=== PATIENT | male | born 1945 | race Caucasian/White ===

== ENCOUNTER → 2017-01-12 | Outpatient (CLI) | payer MEDICARE, OTHER ==
--- NOTE | 2017-01-12 14:54 | RADIOLOGY REPORT (SQ) ---
EXAM DESCRIPTION: CT ABD/PELVIS WITH IV ORAL COMPLETED DATE/TIME: 01/12/2017 2:09 pm REASON FOR STUDY: ABN WEIGHT LOSS/DIABETES MELLITUS TYPE 2 R63.4 ABNORMAL WEIGHT LOSS COMPARISON: CT abdomen pelvis 12/13/2009 TECHNIQUE: CT scan of the abdomen and pelvis performed using helical scanning technique with dynamic intravenous contrast injection. Patient drank oral contrast. Images reviewed with lung, soft tissue , and bone windows. Reconstructed coronal and sagittal MPR images reviewed. Delayed images for evalua tion of the urinary system also acquired. All images stored on PACS. All CT scanners at this facility use dose modulation, iterative reconstruction, and/or weight based d osing when appropriate to reduce radiation dose to as low as reasonably achievable (ALARA). [facility]: Dose Right [facility]: CareDose [facility]: Dose Right [facility]: Teradose 4D [facility]: CaseReader CONTRAST TYPE AND DOSE: contrast/concentration: Isovue 370.00 mg/ml; Total Contrast Delivered: 100.0 ml; Total Saline Delivered: 72.0 ml RENAL FUNCTION: Creatinine 1.4 RADIATION DOSE: Up-to-date CT equipment and radiation dose reduction techniques were employed. CTDIv ol: 18.9 - 19.5 mGy. DLP: 1958 mGy-cm.. LIMITATIONS: None. FINDINGS: LOWER CHEST: No significant findings. No nodules or infiltrates. LIVER: Normal size. No masses. No dilated ducts. Diffuse low attenuation from fatty infiltration SPLEEN: Normal size. No focal lesions. PANCREAS: No masses. No significant calcifications. No adjacent inflammation or peripancreatic fluid collections. Pancreatic duct not dilated. GALLBLADDER: No identified stones by CT criteria. No inflammatory changes to suggest cholecystitis. ADRENAL GLANDS: No significant masses or asymmetry. RIGHT KIDNEY AND URETER: No solid masses. Right upper pole 1.5 cm cyst, right mid-pole 3.7 cm cyst. No significant calcifications. No hydronephrosis or hydroureter. LEFT KIDNEY AND URETER: No solid masses. Left upper pole 1 cm cyst. 1 cm and 2.5 cm left lower pole cysts. No significant calcifications. No hydronephrosis or hydroureter. AORTA AND VESSELS: No aneurysm. No dissection. Renal arteries, celiac without stenosis. Less than 50 % diameter narrowing of the proximal SMA at the origin, best shown on coronal reconstruction images 5 9-67, and midline sagittal reconstruction image 45 RETROPERITONEUM: No retroperitoneal adenopathy, hemorrhage or masses. BOWEL AND PERITONEAL CAVITY: No masses or inflammatory changes. No free fluid or peritoneal masses. Patient drank oral contrast. No bowel obstruction. APPENDIX: Normal. PELVIS: No mass. No free fluid. Normal bladder. ABDOMINAL WALL: Fat containing bilateral inguinal hernias BONES: Disc space loss of height with mild diffuse posterior disc bulge and central stenosis at L4-5 OTHER: No other significant finding. IMPRESSION: NO SIGNIFICANT OR ACUTE FINDING IN THE ABDOMEN OR PELVIS ON CT SCAN WITH IV CONTRAST. TECHNICAL DOCUMENTATION: JOB ID: [id number] Quality ID # [id number]: Final reports with documentation of one or more dose reduction techniques (e.g., Au tomated exposure control, adjustment of the mA and/or kV according to patient size, use of iterative reconstruction technique) 2010 [employer]- All Rights Reserved
== END ==
LOC: RAD 13:24
PROVIDERS: ATTEND Family Medicine
DX: R63.4 Abnormal weight loss (principal); E11.9 Type 2 diabetes mellitus without complications; R13.10 Dysphagia, unspecified
CPT/HCPCS: 74177; 82565

== ENCOUNTER 2019-04-30 19:11 | Inpatient (IN) | payer MEDICARE, OTHER ==
[2019-04-30] MEDS ORDERED: ONDANSETRON 4 MG TAB.RAPDIS PO ONE (20:32)
--- NOTE | 2019-04-30 20:35 | ER Document Report ---
ED Medical Screen (RME) - General Chief Complaint: Vomiting/Diarrhea Stated Complaint: VOMITING/DIARRHEA Time Seen by Provider: 04/30/19 20:29 Primary Care Provider: JERE FIERRO DO [Primary Care Provider] - Follow up as needed Notes: Patient is a 74-year-old male who presents to the emergency department with a chief complaint of abdominal pain and distention. Patient also states that he feels nauseous and has some epigastric pain also. He states that he may have had on and off fevers. Denies any dysuria. Exam: Firm mid abdomen. Mildly tender. I have greeted and performed a rapid initial assessment of this patient. A comprehensive ED assessment and evaluation of the patient, analysis of test results and completion of medical decision making process will be conducted by an additional ED providers. TRAVEL OUTSIDE OF THE [place] IN LAST 30 DAYS: No - Related Data Home Medications: pantoprazole 40 mg qday. amlodipine 5 mg qday. losartan 100/25 qday. januvia 100 mg. levothyroxine 125 mcg. atorvastatin 40 mg qhs. novolog flexpen 10 units tid. basaglar pen 20 units qday Physical Exam - Vital signs Vitals: Temp Pulse Resp BP Pulse Ox 98.1 F 67 20 122/66 95 04/30/19 19:19 04/30/19 19:19 04/30/19 19:19 04/30/19 19:19 04/30/19 19:19 Course - Vital Signs Vital signs: Temp Pulse Resp BP Pulse Ox 98.1 F 67 20 122/66 95 04/30/19 19:19 04/30/19 19:19 04/30/19 19:19 04/30/19 19:19 04/30/19 19:19 Doctor's Discharge - Discharge Referrals: JERE FIERRO DO [Primary Care Provider] - Follow up as needed
[2019-04-30] MEDS ORDERED: NORMAL SALINE 1000 ML 1,000 ML IV ONE ×2 (20:37→23:41)
[2019-04-30] MEDS ORDERED: MORPHINE SULFATE 10 MG/ML INJ IV ONE (21:41)
--- NOTE | 2019-04-30 21:54 | ER Document Report ---
ED General - General Chief Complaint: Vomiting/Diarrhea Stated Complaint: VOMITING/DIARRHEA Time Seen by Provider: 04/30/19 20:29 TRAVEL OUTSIDE OF THE [place] IN LAST 30 DAYS: No - HPI Notes: This is a 74-year-old gentleman who presents today with a complaint of nausea, vomiting, diarrhea and abdominal pain for the past 4 to 5 days. Patient describes cramping epigastric discomfort. He denies any dark or bloody stools. He denies any recent antibiotic use or foreign travel. He also states that he is feels some palpitations and chest pain intermittently over the past few days. He denies any fever or chills. He describes her symptoms as moderate. There are no obvious aggravating or relieving factors. - Related Data Allergies/Adverse Reactions: amoxicillin [From Augmentin] Allergy (Verified 04/30/19 21:43) Beta-Blockers (Beta-Adrenergic Bloc Allergy (Verified 04/30/19 21:43) clavulanic acid [From Augmentin] Allergy (Verified 04/30/19 21:43) niacin Allergy (Verified 04/30/19 21:43) Home Medications: pantoprazole 40 mg qday. amlodipine 5 mg qday. losartan 100/25 qday. januvia 100 mg. levothyroxine 125 mcg. atorvastatin 40 mg qhs. novolog flexpen 10 units tid. basaglar pen 20 units qday Past Medical History - Social History Smoking Status: Never Smoker Frequency of alcohol use: None Drug Abuse: None Family History: Hypertension Patient has suicidal ideation: No Patient has homicidal ideation: No Review of Systems - Review of Systems Constitutional: denies: Fever Cardiovascular: Chest pain, Palpitations Gastrointestinal: Abdomen distended, Abdominal pain, Diarrhea, Nausea, Vomiting -: Yes All other systems reviewed and negative Physical Exam - Vital signs Vitals: Temp Pulse Resp BP Pulse Ox 98.1 F 67 20 122/66 95 04/30/19 19:19 04/30/19 19:19 04/30/19 19:19 04/30/19 19:19 04/30/19 19:19 - General General appearance: Appears well, Alert - HEENT Head: Normocephalic, Atraumatic Eyes: Normal Pupils: PERRL - Respiratory Respiratory status: No respiratory distress Chest status: Nontender Breath sounds: Normal Chest palpation: Normal - Cardiovascular Rhythm: Irregularly irregular, Tachycardia Heart sounds: S1 appreciated, S2 appreciated - Abdominal Inspection: Normal Distension: Distended Bowel sounds: Normal Tenderness: Tender - Slight epigastric and left lower quadrant tenderness. No guarding or rebound. No peritoneal signs. - Back Back: Normal, Nontender - Extremities General upper extremity: Nontender General lower extremity: Nontender. No: Edema - Neurological Neuro grossly intact: Yes Cognition: Normal Orientation: AAOx4 Tha Coma Scale Eye Opening: Spontaneous Tha Coma Scale Verbal: Oriented Tha Coma Scale Motor: Obeys Commands Tha Coma Scale Total: 15 Speech: Normal Motor strength normal: LUE, RUE, LLE, RLE Sensory: Normal - Psychological Associated symptoms: Normal affect, Normal mood Course - Re-evaluation Re-evalutation: 04/30/19 21:54 Differential diagnosis includes gastroenteritis versus pancreatitis versus gastritis versus diverticulitis versus colitis. To new onset A. fib with RVR. Will check basic labs including electrolytes and thyroid function. We will also need to rule out ACS given intermittent chest pain. Will get CT scan. EKG shows A. fib with a ventricular rate of 136 bpm. Normal axis. Nonspecific ST depressions. No acute injury pattern. 04/30/19 23:46 Patient reevaluated. Patient is doing better. Heart rate improved significantly. Still in A. fib. Heart rate is between 90s to 105. CT scan is concerning for possible ischemic bowel. Patient's care discussed with Dr. Lanza., surgicalist 05/01/19 00:17 Patient has been seen by Dr. Lanza He recommends admission by hospitalist service. He will follow with consult. He recommends anticoagulation with heparin.. Call placed to Dr. Yepez. 05/01/19 00:34 Patient reevaluated. His stool is trace heme positive. I discussed this finding with Dr. Lanza. He agrees that we should not anticoagulate this patient at this time given heme positive stools. Patient's care discussed with Dr. Yepez. Will admit to telemetry. - Vital Signs Vital signs: Temp Pulse Resp BP Pulse Ox 98.8 F 67 13 101/65 94 05/01/19 02:58 04/30/19 19:19 05/01/19 03:01 05/01/19 03:01 05/01/19 03:01 - Laboratory Result Diagrams: 04/30/19 21:34 04/30/19 21:34 Laboratory results interpreted by me: 04/30/19 04/30/19 04/30/19 21:04 21:34 21:34 WBC 12.6 H RBC 5.60 H Hgb 17.1 H Lymph % (Auto) 7.3 L Absolute Neuts (auto) 10.7 H Seg Neutrophils % 84.5 H Potassium 3.5 L BUN 36 H Creatinine 1.63 H Est GFR ( Amer) 50 L Est GFR (MDRD) Non-Af 41 L Glucose 157 H POC Glucose 153 H TSH Urine Protein 04/30/19 04/30/19 21:34 21:39 WBC RBC Hgb Lymph % (Auto) Absolute Neuts (auto) Seg Neutrophils % Potassium BUN Creatinine Est GFR ( Amer) Est GFR (MDRD) Non-Af Glucose POC Glucose TSH 8.18 H Urine Protein 30 H Discharge - Discharge Clinical Impression: Atrial fibrillation with rapid ventricular response, Gastroenteritis Abdominal pain Qualifiers: Abdominal location: generalized Qualified Code(s): R10.84 - Generalized abdominal pain Condition: Fair Disposition: ADMITTED INPATIENT Admitting Provider: Marleni (Hospitalist) Unit Admitted: Telemetry
[2019-04-30 22:06] LABS: ABSOLUTE BASOPHILS # (AUTO) 0.1 10^3/uL (0.0-0.2); ABSOLUTE LYMPHOCYTES (AUTO) 0.9 10^3/uL (0.5-4.7); ABSOLUTE MONOCYTES (AUTO) 0.9 10^3/uL (0.1-1.4); ABSOLUTE NEUT (AUTO) 10.7 10^3/uL (1.7-8.2); BASOPHILS % (AUTO) 0.5 % (0-2); EOSINOPHILS % (AUTO) 0.2 % (0-6); HEMATOCRIT 50.3 % (37.9-51.0); HEMOGLOBIN 17.1 g/dL (13.5-17.0); LYMPHOCYTES % (AUTO) 7.3 % (13-45); MEAN CORPUSCULAR HEMOGLOBIN 30.6 pg (27.0-33.4); MEAN CORPUSCULAR HGB CONC 34.1 g/dL (32.0-36.0); MEAN CORPUSCULAR VOLUME 90 fl (80-97); MONOCYTES % (AUTO) 7.5 % (3-13); PLATELET COUNT 312 10^3/uL (150-450); RED CELL DISTRIBUTION WIDTH 13.7 % (11.5-14.0); SEGMENTED NEUTROPHILS % (AUTO) 84.5 % (42-78); TOTAL CELLS COUNTED % (AUTO) 100 %; WHITE BLOOD COUNT 12.6 10^3/uL (4.0-10.5)
[2019-04-30 22:15] LABS: APPEARANCE,URINE SLIGHTLY-CLOUDY; BILIRUBIN,URINE NEGATIVE (NEGATIVE); COLOR,URINE AMBER; GLUCOSE, URINE NEGATIVE (NEGATIVE); KETONES,URINE NEGATIVE (NEGATIVE); LEUKOCYTE ESTERASE,URINE NEGATIVE (NEGATIVE); NITRITE,URINE NEGATIVE (NEGATIVE); PROTEIN,URINE 30 mg/dL (NEGATIVE); URINE SPECIFIC GRAVITY 1.027; UROBILINOGEN,URINE NEGATIVE mg/dL (<2.0)
[2019-04-30 22:28] LABS: ALBUMIN 4.6 g/dL (3.5-5.0); ALKALINE PHOSPHATASE 45 U/L (38-126); ANION GAP 15 (5-19); ASPARTATE AMINO TRANSFERASE 42 U/L (17-59); BILIRUBIN,DIRECT 0.2 mg/dL (0.0-0.4); BILIRUBIN,TOTAL 0.8 mg/dL (0.2-1.3); BLOOD UREA NITROGEN 36 mg/dL (7-20); CALCIUM 9.7 mg/dL (8.4-10.2); CARBON DIOXIDE 23 mmol/L (22-30); CHLORIDE 102 mmol/L (98-107); GLUCOSE 157 mg/dL (75-110); POTASSIUM 3.5 mmol/L (3.6-5.0); TOTAL PROTEIN 7.6 g/dL (6.3-8.2)
--- NOTE | 2019-04-30 22:29 | RADIOLOGY REPORT (SQ) ---
EXAM DESCRIPTION: XR CHEST 1 VIEW COMPLETED DATE/TME: 04/30/2019 21:41 CLINICAL HISTORY: 74 years, Male, chest pain COMPARISON: None. NUMBER OF VIEWS: 1 TECHNIQUE: Portable chest LIMITATIONS: None. FINDINGS: The heart size is normal. Post surgical change of the cervical spine. Osteopenia. Lungs clear. No pneumothorax IMPRESSION: No acute cardiopulmonary process copyright 2010 [employer]- All Rights Reserved
[2019-04-30 22:42] LABS: FREE T4 (FREE THYROXINE) 1.04 ng/dL (0.78-2.19)
[2019-04-30 22:56] LABS: THYROID STIMULATING HORMONE 8.18 uIU/mL (0.47-4.68)
--- NOTE | 2019-04-30 23:28 | RADIOLOGY REPORT (SQ) ---
EXAM DESCRIPTION: CLINICAL HISTORY: 74 years Male abdominal pain/distension COMPARISON: CT 01/12/2017. TECHNIQUE: Axial images with IV contrast. Contrast dose not available sagittal coronal reconstruction. This exam was performed according to our departmental dose-optimization program, which includes automated exposure control, adjustment of the mA and/or kV according to patient size and/or use of iterative reconstruction technique.. FINDINGS: Minimal chronic changes in the lung bases with apparent air trapping and minimal linear densities. Fatty liver. Spleen, pancreas , biliary system, adrenal glands Para-aortic regions are unremarkable. Mildly atherosclerotic aorta without dilatation or narrowing. Moderate narrowing at the origin of the superior mesenteric artery. Mild narrowing at the origin of the left renal artery. Kidneys without acute findings. Small cysts. Mild to moderate gastric distention. Duodenum and very proximal jejunum not dilated. [id number] dilatation of the mid jejunum and ileum except for several areas of normal small bowel caliber.. Mildly dilated right and transverse colon. Contracted unremarkable descending colon. Increased peritoneal fat. Several levels of from [id number] lumbar spinal stenosis. CT of the pelvis demonstrates increased perirectal fat. Mildly enlarged prostate. Urinary bladder grossly unremarkable. Rectosigmoid contracted without obvious thickening. Sigmoid diverticulosis without acute diverticulitis. No adenopathy. Bilateral inguinal hernias with herniation of fat more obvious in the left. No herniation of bowel loops. IMPRESSION: 1. Mild dilatation with increased fluid of majority of small bowel and as well as right and transverse colon. No obvious obstructing lesion. Findings could be related to gastroenteritis or ileus. There is narrowing at the origin of the superior mesenteric artery and questionably mild stenosis of the celiac artery. The possibility of ischemic bowel should be considered. Bowel wall is is relatively thin which does not exclude ischemic changes. There are no obvious peritoneal abnormalities. 2. Sigmoid diverticulosis without acute diverticulitis. 3. Fatty liver. Increased peritoneal fat causing abdominal distention. 4. Bilateral inguinal hernias with herniation of fat not bowel..
[2019-05-01] MEDS ORDERED: DILTIAZEM HCL INJ 25 MG/5 ML VIAL IV ONE (00:09)
[2019-05-01] MEDS ORDERED: ASPIRIN 81 MG TABLET, CHEWABLE PO ONE (00:15)
--- NOTE | 2019-05-01 00:43 | PDOC CONSULTATION ---
Consultation Consult Date: 05/01/19 Provider Consulted: ALLEY MANNING Consult reason:: Abdominal pain and distention with nausea vomiting diarrhea History of Present Illness Admission Date/PCP: CHELSEA MARR History of Present Illness: FLORIAN MCKEON is a 74 year old male, obese, with a 3-day history of progressive increasing abdominal pain diffuse, nausea with vomiting, no emesis, multiple bouts of liquid stools without hematochezia. During this time the patient developed chest pain which continued at the same time of the abdominal pain. The patient presented to the emergency room with the above abdominal and chest symptoms. Following further evaluation, the patient presents with new onset atrial fibrillation initially associated with RVR, now subsided. A CT scan of the abdomen pelvis has been obtained and this reveals occasional distended loops of small bowel, distended right colon, thin-walled small bowel, modest narrowing of the takeoff of the SMA and of the celiac artery. However, the radiologist cannot firmly confirm the possibility of small bowel ischemia. No small bowel wall thickening or pneumatosis identified and no free air or free fluid is seen. His stools have been tested and found to be heme positive. I have been consulted to rule out the possibility of small bowel ischemia and to provide recommendations for diagnosis and treatment. Social History Smoking Status: Never Smoker Family History Parental Family History Reviewed: No Children Family History Reviewed: No Sibling(s) Family History Reviewed.: No Medication/Allergy Allergies/Adverse Reactions: amoxicillin [From Augmentin] Allergy (Verified 04/30/19 21:43) Beta-Blockers (Beta-Adrenergic Bloc Allergy (Verified 04/30/19 21:43) clavulanic acid [From Augmentin] Allergy (Verified 04/30/19 21:43) niacin Allergy (Verified 04/30/19 21:43) Physical Exam Vital Signs: Temp Pulse Resp BP Pulse Ox 98.1 F 67 24 H 120/83 89 L 04/30/19 19:19 04/30/19 19:19 05/01/19 00:01 05/01/19 00:01 05/01/19 00:01 Intake & Output 04/29/19 04/30/19 05/01/19 06:59 06:59 06:59 Weight 99 kg General appearance: PRESENT: no acute distress, obese Head exam: PRESENT: atraumatic Eye exam: PRESENT: EOMI Mouth exam: PRESENT: moist, neck supple Teeth exam: PRESENT: poor dentation Neck exam: PRESENT: other - His range of motion Respiratory exam: PRESENT: clear to auscultation patti Cardiovascular exam: PRESENT: irregular rhythm GI/Abdominal exam: PRESENT: distended, firm, normal bowel sounds, tenderness - Diffuse Rectal exam: PRESENT: heme (+) stool - As per emergency room physician evaluation Extremities exam: PRESENT: full ROM Musculoskeletal exam: PRESENT: ambulatory, full ROM Neurological exam: PRESENT: alert, awake, oriented to time Psychiatric exam: PRESENT: anxious, appropriate affect Skin exam: PRESENT: warm Results Laboratory Results: 04/30/19 21:34 04/30/19 21:34 04/30/19 04/30/19 04/30/19 21:34 21:34 21:34 WBC 12.6 H RBC 5.60 H Hgb 17.1 H Hct 50.3 MCV 90 MCH 30.6 MCHC 34.1 RDW 13.7 Plt Count 312 Seg Neutrophils % 84.5 H Sodium 139.9 Potassium 3.5 L Chloride 102 Carbon Dioxide 23 Anion Gap 15 BUN 36 H Creatinine 1.63 H Est GFR ( Amer) 50 L Glucose 157 H Calcium 9.7 Magnesium 2.0 Total Bilirubin 0.8 AST 42 Alkaline Phosphatase 45 Total Protein 7.6 Albumin 4.6 Lipase 44.3 TSH 8.18 H Free T4 1.04 Urine Color Urine Appearance Urine pH Ur Specific [place] Urine Protein Urine Glucose (UA) Urine Ketones Urine Blood Urine Nitrite Ur Leukocyte Esterase Urine WBC (Auto) 04/30/19 21:39 WBC RBC Hgb Hct MCV MCH MCHC RDW Plt Count Seg Neutrophils % Sodium Potassium Chloride Carbon Dioxide Anion Gap BUN Creatinine Est GFR ( Amer) Glucose Calcium Magnesium Total Bilirubin AST Alkaline Phosphatase Total Protein Albumin Lipase TSH Free T4 Urine Color MANUEL Urine Appearance SLIGHTLY-CLOUDY Urine pH 5.0 Ur Specific [place] 1.027 Urine Protein 30 H Urine Glucose (UA) NEGATIVE Urine Ketones NEGATIVE Urine Blood NEGATIVE Urine Nitrite NEGATIVE Ur Leukocyte Esterase NEGATIVE Urine WBC (Auto) 3 04/30/19 21:34 Troponin I < 0.012 Impressions: Abdomen/Pelvis CT 04/30/19 20:34 IMPRESSION: 1. Mild dilatation with increased fluid of majority of small bowel and as well as right and transverse colon. No obvious obstructing lesion. Findings could be related to gastroenteritis or ileus. There is narrowing at the origin of the superior mesenteric artery and questionably mild stenosis of the celiac artery. The possibility of ischemic bowel should be considered. Bowel wall is is relatively thin which does not exclude ischemic changes. There are no obvious peritoneal abnormalities. 2. Sigmoid diverticulosis without acute diverticulitis. 3. Fatty liver. Increased peritoneal fat causing abdominal distention. 4. Bilateral inguinal hernias with herniation of fat not bowel.. Chest X-Ray 04/30/19 21:41 IMPRESSION: No acute cardiopulmonary process copyright 2011 [employer]- All Rights Reserved Assessment & Plan - Diagnosis (1) Abdominal pain Is this a current diagnosis for this admission?: Yes (2) Diarrhea Is this a current diagnosis for this admission?: Yes (3) Guaiac positive stools Is this a current diagnosis for this admission?: Yes (4) Fibrillation, atrial Is this a current diagnosis for this admission?: Yes (5) Acute ischemia of small intestine Is this a current diagnosis for this admission?: Yes - Plan Summary Plan Summary: Assessment: 3-day history of acute onset abdominal pain nausea vomiting diarrhea as well as chest pain Heme positive stools New onset atrial fibrillation for the ED Mild leukocytosis (12.6) Mild elevation of BUN and creatinine 36 and 1.6, respectively Nondiagnostic CT scan abdomen pelvis which shows occasional distended thin- walled loops of small bowel but less distended right colon 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 Also, the CT scan findings are unusual for small bowel ischemia lasting for 3 days as there is no bowel wall edema and / or pneumatosis. CT angiogram angiogram of the abdomen would be recommended; however, due to the elevated creatinine the administration of contrast is contraindicated Full anticoagulation is contraindicated as well due to the guaiac positive stools. At this point, I am recommending n.p.o. status, aggressive IV hydration, and observation An ultrasound of the celiac artery and SMA could be done tomorrow to better define the narrowing of these vessels.
[2019-05-01] MEDS ORDERED: GLUCAGON,HUMAN RECOMB 1 MG INJ SUBCUT PRN (01:27)
[2019-05-01] MEDS ORDERED: PROMETHAZINE HCL INJ 25 MG/1 ML VIAL IV PRN (01:27)
[2019-05-01] MEDS ORDERED: DEXTROSE 40% GEL 15 GM TUBE PO PRN ×2 (01:27)
[2019-05-01] MEDS ORDERED: DEXTROSE 50%-WATER 25 GM/50 ML DISP.SYRIN IV PRN ×2 (01:27)
[2019-05-01] MEDS ORDERED: ACETAMINOPHEN 650 MG SUPP.RECT PR PRN (01:33)
[2019-05-01] MEDS ORDERED: MORPHINE SULFATE 10 MG/ML INJ IV PRN ×3 (01:33)
[2019-05-01] MEDS ORDERED: HYDRALAZINE HCL INJ/PF 20 MG/1 ML SDV IV PRN (01:33)
[2019-05-01] MEDS ORDERED: DILTIAZEM HCL INJ 25 MG/5 ML VIAL IV PRN (01:35)
[2019-05-01] MEDS ORDERED: RINGERS SOLUTION,LACTATED 1,000 ML IV PRN (02:17)
--- NOTE | 2019-05-01 05:30 | PDOC H&P ---
History of Present Illness Admission Date/PCP: 05/01/19 00:50 CHELSEA MARR Patient complains of: Abdominal pain History of Present Illness: FLORAIN MCKEON is a 74 year old male who presented emergency room with a 3-day history of abdominal pain. The patient admits progressively worsening generalized abdominal pain associated with nausea and retching as numerous liquid diarrhea stools with cramping. He has also noticed accompanying episodic heart palpitations. He denies prior similar episodes of abdominal pain and heart palpitations. He denies other associated or accompanying signs and symptoms. He denies identification of any aggravating or ameliorating factors for his abdominal pain. In the emergency room he was found to have atrial fibrillation with a rapid ventricular response which rapidly developed into a controlled response to atrial fibrillation without treatment. He also was found to have small bowel changes on his CT of the abdomen which were suspicious for ischemic bowel disease. Dr. Lanza has consulted on the patient and will be following. Past Medical History Cardiac Medical History: Reports: Hyperlipidema, Hypertension Denies: Atrial Fibrillation, Congestive Heart Failure, Coronary Artery Disease, Myocardial Infarction Pulmonary Medical History: Denies: Asthma, Chronic Obstructive Pulmonary Disease (COPD), Respiratory Failure, Sleep Apnea EENT Medical History: Denies: Cataracts, Ears - Hearing aids Neurological Medical History: Denies: Hemorrhagic CVA, Ischemic CVA, Seizures Endocrine Medical History: Reports: Diabetes Mellitus Type 2, Obesity Denies: Diabetes Mellitus Type 1, Hyperthyroidism, Hypothyroidism Renal/ Medical History: Reports: Chronic Kidney Disease Denies: Nephrolithiasis Malignancy Medical History: Reports: None GI Medical History: Reports: Gastroesophageal Reflux Disease Denies: Cirrhosis, Crohn's Disease, Hepatitis, Peptic Ulcer Disease, Ulcerative Colitis Musculoskeltal Medical History: Reports: Arthritis - Osteoarthritis of multiple joints Denies: Gout Skin Medical History: Denies: Eczema, Psoriasis Psychiatric Medical History: Denies: Alcohol Dependency, Substance Abuse, Tobacco Dependency Traumatic Medical History: Reports: None Hematology: Denies: Anemia, Bleeding Tendencies Infectious Medical History: Reports: None Past Surgical History Past Surgical History: Reports: Herniorrhaphy, Orthopedic Surgery - Neck surgery due to injury Social History Information Source: Patient Lives with: Alone Smoking Status: Never Smoker Electronic Cigarette use?: No Frequency of Alcohol Use: None Hx Recreational Drug Use: No Drugs: None Hx Prescription Drug Abuse: No - Advance Directive Resuscitation Status: Full Code Surrogate healthcare decision maker:: Elects not to provide a surrogate medical decision-maker at this time, after discussion. Family History Family History: CAD, CVA, DM, Hypertension, Malignancy. denies: Thyroid Disfunction Parental Family History Reviewed: Yes Children Family History Reviewed: No Sibling(s) Family History Reviewed.: Yes Medication/Allergy Home Medications: Amlodipine Besylate [Norvasc 10 mg Tablet] 10 mg PO DAILY 05/01/19 Atorvastatin Calcium [Lipitor 40 mg Tablet] 40 mg PO QHS 05/01/19 Cholecalciferol (Vitamin D3) [Vitamin D3 2000 unit Tablet] 2,000 unit PO QHS 05/01/19 Fenofibrate Nanocrystallized [Fenofibrate] 160 mg PO QHS 05/01/19 Insulin Aspart [Novolog Flexpen] 10 unit SQ TID 05/01/19 Insulin Glargine,Hum.rec.anlog [Basaglar Kwikpen U-100] 20 unit SQ QHS 05/01/19 Levothyroxine Sodium 125 mcg PO QHS 05/01/19 Losartan/Hydrochlorothiazide [Losartan-Hctz 100-25 mg Tab] 1 each PO DAILY 05/01/19 Meloxicam [Mobic] 15 mg PO QHS 05/01/19 Pantoprazole Sodium [Protonix [address] Tablet] 40 mg PO QAM 05/01/19 Sitagliptin Phosphate [Januvia] 100 mg PO DAILY 05/01/19 Allergies/Adverse Reactions: amoxicillin [From Augmentin] Allergy (Verified 04/30/19 21:43) Beta-Blockers (Beta-Adrenergic Bloc Allergy (Verified 04/30/19 21:43) clavulanic acid [From Augmentin] Allergy (Verified 04/30/19 21:43) niacin Allergy (Verified 04/30/19 21:43) Review of Systems Constitutional: ABSENT: chills, fever(s) Eyes: ABSENT: visual disturbances, other - Eye pain Ears: ABSENT: hearing changes, other - Ear pain Nose, Mouth, and Throat: ABSENT: headache(s), mouth pain, sore throat Cardiovascular: PRESENT: as per HPI, palpitations - Associates this occurrence with a vague sensation in his chest but not chest pain.. ABSENT: chest pain, dyspnea on exertion, edema, orthropnea Respiratory: ABSENT: cough, dyspnea Gastrointestinal: PRESENT: as per HPI, abdominal pain, diarrhea, nausea, vomiting - Retching. ABSENT: constipation, hematochezia, melena Genitourinary: ABSENT: dysuria, hematuria Musculoskeletal: ABSENT: back pain, joint swelling, muscle weakness Integumentary: ABSENT: pruritus, rash Neurological: ABSENT: confusion, convulsions, focal weakness, memory loss, syncope Psychiatric: ABSENT: anxiety, depression Endocrine: ABSENT: cold intolerance, heat intolerance Hematologic/Lymphatic: ABSENT: easy bleeding, easy bruising Allergic/Immunologic: ABSENT: seasonal rhinorrhea Physical Exam Vital Signs: Temp Pulse Resp BP Pulse Ox 98.1 F 67 14 115/65 96 04/30/19 19:19 04/30/19 19:19 05/01/19 00:31 05/01/19 00:31 05/01/19 00:31 Intake & Output 04/29/19 04/30/19 05/01/19 23:59 23:59 23:59 Intake Total 1000 Balance 1000 Weight 99 kg General appearance: PRESENT: cooperative, mild distress - Secondary to abdominal pain, obese Head exam: PRESENT: atraumatic, normocephalic Eye exam: PRESENT: conjunctiva pink. ABSENT: conjunctival injection, scleral icterus Ear exam: PRESENT: normal external ear exam. ABSENT: bleeding, drainage Mouth exam: PRESENT: dry mucosa, neck supple Neck exam: ABSENT: thyromegaly, tracheal deviation Respiratory exam: PRESENT: clear to auscultation patti, symmetrical, unlabored Cardiovascular exam: PRESENT: irregular rhythm - Irregularly irregular rate and rhythm. ABSENT: clicks, gallop, rubs Pulses: PRESENT: normal radial pulses, normal dorsalis pedis pul Vascular exam: PRESENT: normal capillary refill. ABSENT: pallor GI/Abdominal exam: PRESENT: diminished bowel sounds, distended - Marked generalized distention, soft, tenderness - Moderate generalized tenderness on palpation Rectal exam: PRESENT: deferred Extremities exam: ABSENT: joint swelling, pedal edema Musculoskeletal exam: ABSENT: deformity, dislocation Neurological exam: PRESENT: alert, oriented to person, oriented to place, oriented to time, oriented to situation, CN II-XII grossly intact. ABSENT: motor sensory deficit Psychiatric exam: PRESENT: appropriate affect, normal mood Skin exam: PRESENT: dry, intact, warm. ABSENT: jaundice, rash, urticaria Results Laboratory Results: 04/30/19 21:34 04/30/19 21:34 04/30/19 04/30/19 04/30/19 21:34 21:34 21:34 WBC 12.6 H RBC 5.60 H Hgb 17.1 H Hct 50.3 MCV 90 MCH 30.6 MCHC 34.1 RDW 13.7 Plt Count 312 Seg Neutrophils % 84.5 H Sodium 139.9 Potassium 3.5 L Chloride 102 Carbon Dioxide 23 Anion Gap 15 BUN 36 H Creatinine 1.63 H Est GFR ( Amer) 50 L Glucose 157 H Lactic Acid Calcium 9.7 Magnesium 2.0 Total Bilirubin 0.8 AST 42 Alkaline Phosphatase 45 Total Protein 7.6 Albumin 4.6 Lipase 44.3 TSH 8.18 H Free T4 1.04 Urine Color Urine Appearance Urine pH Ur Specific [place] Urine Protein Urine Glucose (UA) Urine Ketones Urine Blood Urine Nitrite Ur Leukocyte Esterase Urine WBC (Auto) 04/30/19 05/01/19 21:39 00:11 WBC RBC Hgb Hct MCV MCH MCHC RDW Plt Count Seg Neutrophils % Sodium Potassium Chloride Carbon Dioxide Anion Gap BUN Creatinine Est GFR ( Amer) Glucose Lactic Acid 1.0 Calcium Magnesium Total Bilirubin AST Alkaline Phosphatase Total Protein Albumin Lipase TSH Free T4 Urine Color MANUEL Urine Appearance SLIGHTLY-CLOUDY Urine pH 5.0 Ur Specific [place] 1.027 Urine Protein 30 H Urine Glucose (UA) NEGATIVE Urine Ketones NEGATIVE Urine Blood NEGATIVE Urine Nitrite NEGATIVE Ur Leukocyte Esterase NEGATIVE Urine WBC (Auto) 3 04/30/19 21:34 Troponin I < 0.012 Impressions: Abdomen/Pelvis CT 04/30/19 20:34 IMPRESSION: 1. Mild dilatation with increased fluid of majority of small bowel and as well as right and transverse colon. No obvious obstructing lesion. Findings could be related to gastroenteritis or ileus. There is narrowing at the origin of the superior mesenteric artery and questionably mild stenosis of the celiac artery. The possibility of ischemic bowel should be considered. Bowel wall is is relatively thin which does not exclude ischemic changes. There are no obvious peritoneal abnormalities. 2. Sigmoid diverticulosis without acute diverticulitis. 3. Fatty liver. Increased peritoneal fat causing abdominal distention. 4. Bilateral inguinal hernias with herniation of fat not bowel.. Chest X-Ray 04/30/19 21:41 IMPRESSION: No acute cardiopulmonary process copyright 2011 [employer]- All Rights Reserved Assessment and Plan - Diagnosis (1) Abdominal pain Qualifiers: Abdominal location: generalized Qualified Code(s): R10.84 - Generalized abdominal pain Is this a current diagnosis for this admission?: Yes (2) Diarrhea Qualifiers: Diarrhea type: unspecified type Qualified Code(s): R19.7 - Diarrhea, unspecified Is this a current diagnosis for this admission?: Yes (3) Guaiac positive stools Is this a current diagnosis for this admission?: Yes (4) Fibrillation, atrial Qualifiers: Atrial fibrillation type: unspecified Qualified Code(s): I48.91 - Unspecified atrial fibrillation Is this a current diagnosis for this admission?: Yes (5) Hypertension Qualifiers: Hypertension type: essential hypertension Qualified Code(s): I10 - Essential (primary) hypertension Is this a current diagnosis for this admission?: Yes (6) Hyperlipidemia Qualifiers: Hyperlipidemia type: unspecified Qualified Code(s): E78.5 - Hyperlipidemia, unspecified Is this a current diagnosis for this admission?: Yes (7) Diabetes mellitus type 2 in obese Is this a current diagnosis for this admission?: Yes (8) Gastroesophageal reflux disease Qualifiers: Esophagitis presence: esophagitis presence not specified Qualified Code(s): K21.9 - Gastro-esophageal reflux disease without esophagitis Is this a current diagnosis for this admission?: Yes (9) Renal insufficiency Is this a current diagnosis for this admission?: Yes - Plan Summary Summary: Patient will be admitted to the medical floor in a telemetry bed for routine supportive and symptomatic cares. He will be maintained on IV fluids and kept n.p.o. overnight. He will be reevaluated on a regular basis by Dr. Lanza from the surgical service. His atrial fibrillation will be monitored and rapid ventricular responses will be treated as needed. Due to the patient's guaiac positive stool on exam in ER he will not be placed on anticoagulation at this time and given his age and potential for greater risk than benefit of an ticoagulation it may not be appropriate at any point in time. He will be given Zofran as needed for nausea and retching. Daily CBCs, metabolic profiles and magnesium levels will be followed as appropriate with other laboratory testing as deemed necessary. Before meals and at bedtime Accu-Cheks will be performed with sliding scale insulin for hyperglycemia and a hypoglycemic protocol in place. Elevations of the patient's blood pressure and/or heart rate will be treated with IV hydralazine and/or IV diltiazem. Patient will use morphine sulfate 2 to 4 mg IV every 2 hours on an as-needed basis for pain control. - Time Time Spent with patient: 15-24 minutes Medications reviewed and adjusted accordingly: Yes Anticipated discharge: Home - Inpatient Certification Based on my medical assessment, after consideration of the patient's comorbidities, presenting symptoms, or acuity I expect that the services needed warrant INPATIENT care.: Yes I certify that my determination is in accordance with my understanding of Medicare's requirements for reasonable and necessary INPATIENT services [42 CFR 412.3e].: Yes Medical Necessity: Significant Comorbidiites Make Outpatient Treatment Too Risky, Need Close Monitoring Due to Risk of Patient Decompensation, Need For IV Fluids, Need For Continuous Telemetry Monitoring, Need for Pain Control, Need for Surgery, Risk of Complication if Not Cared For in Hospital, Risk of Diagnosis Which Will Require Inpatient Eval/Care/Monitoring
[2019-05-01 07:47] LABS: HEMATOCRIT 43.5 % (37.9-51.0); MEAN CORPUSCULAR HEMOGLOBIN 30.6 pg (27.0-33.4); MEAN CORPUSCULAR HGB CONC 34.1 g/dL (32.0-36.0); MEAN CORPUSCULAR VOLUME 90 fl (80-97); PLATELET COUNT 240 10^3/uL (150-450); RED BLOOD COUNT 4.83 10^6/uL (4.35-5.55); RED CELL DISTRIBUTION WIDTH 13.6 % (11.5-14.0); WHITE BLOOD COUNT 8.6 10^3/uL (4.0-10.5)
[2019-05-01 07:49] LABS: HEMOGLOBIN 14.8 g/dL (13.5-17.0)
[2019-05-01] MEDS: INSULIN REG, HUMAN 100 UNIT/ML 3 ML VIAL (PYX) SUBCUT SCH ×4 (08:58→21:25)
[2019-05-01 09:01] LABS: ANION GAP 11 (5-19); BLOOD UREA NITROGEN 33 mg/dL (7-20); CALCIUM 8.4 mg/dL (8.4-10.2); CARBON DIOXIDE 26 mmol/L (22-30); CHLORIDE 105 mmol/L (98-107); GLUCOSE 138 mg/dL (75-110)
[2019-05-01 09:04] LABS: POTASSIUM 3.1 mmol/L (3.6-5.0)
[2019-05-01] MEDS: PANTOPRAZOLE SODIUM 40 MG VIAL IV SCH ×2 (09:15→21:30)
[2019-05-01] MEDS: METOCLOPRAMIDE HCL INJ/PF 10 MG/2 ML SDV IV SCH ×4 (09:15→21:30)
[2019-05-01] MEDS: LEVOTHYROXINE SODIUM 0.15 MG TABLET PO SCH (09:27)
[2019-05-01 09:39] LABS: INTERNATIONAL RATION (INR) 1.06; PARTIAL THROMBOPLASTIN TIME 27.5 SEC (23.5-35.8); PROTHROMBIN TIME 13.8 SEC (11.4-15.4)
--- NOTE | 2019-05-01 10:07 | RADIOLOGY REPORT (SQ) ---
EXAM DESCRIPTION: U/S ABDOMEN LTD W/DOPPLER COMPLETED DATE/TIME: 05/01/2019 9:48 am REASON FOR STUDY: celiac artery and SMA duplex r/o embolic episode COMPARISON: None. TECHNIQUE: Static and dynamic grayscale images acquired of the aorta and stored on PACs. Selected co shreyas Doppler and spectral images recorded. LIMITATIONS: Limited exam secondary to body habitus and bowel gas. FINDINGS: Aortic velocity 54 cm/s. Proximal aorta measures 2.4 cm. Celiac and SMA vessels were not visualized secondary to body habitus. IMPRESSION: Limited exam secondary to body habitus and overlying bowel gas. Nondiagnostic for evaluation of the mesenteric vessels. TECHNICAL DOCUMENTATION: JOB ID: [id number] [employer]- All Rights Reserved Reading location - IP/workstation name: [email or web address]
[2019-05-01] MEDS ORDERED: NORMAL SALINE 1000 ML 1,000 ML IV PRN (11:46)
--- NOTE | 2019-05-01 11:57 | PDOC PROGRESS REPORT ---
Subjective Progress Note for:: 05/01/19 Subjective:: Patient states he feels great, wants something to eat. Reason For Visit: ABDOMINAL PAIN, ATRIAL FIBRILLATION Physical Exam Vital Signs: Temp Pulse Resp BP Pulse Ox 97.6 F 69 17 111/60 95 05/01/19 07:52 05/01/19 07:52 05/01/19 07:52 05/01/19 07:52 05/01/19 07:52 Intake & Output 04/30/19 05/01/19 05/02/19 06:59 06:59 06:59 Intake Total 1000 1000 Output Total 1 Balance 999 1000 Weight 92 kg General appearance: PRESENT: no acute distress GI/Abdominal exam: PRESENT: other - Abdomen is benign, soft nontender no peritoneal signs no rigidity. Bilateral inguinal hernias, nonincarcerated. Results Laboratory Results: 05/01/19 07:23 05/01/19 07:23 04/30/19 04/30/19 04/30/19 21:34 21:34 21:34 WBC 12.6 H RBC 5.60 H Hgb 17.1 H Hct 50.3 MCV 90 MCH 30.6 MCHC 34.1 RDW 13.7 Plt Count 312 Seg Neutrophils % 84.5 H Sodium 139.9 Potassium 3.5 L Chloride 102 Carbon Dioxide 23 Anion Gap 15 BUN 36 H Creatinine 1.63 H Est GFR ( Amer) 50 L Glucose 157 H Lactic Acid Calcium 9.7 Magnesium 2.0 Total Bilirubin 0.8 AST 42 Alkaline Phosphatase 45 Total Protein 7.6 Albumin 4.6 Lipase 44.3 TSH 8.18 H Free T4 1.04 Urine Color Urine Appearance Urine pH Ur Specific [place] Urine Protein Urine Glucose (UA) Urine Ketones Urine Blood Urine Nitrite Ur Leukocyte Esterase Urine WBC (Auto) 04/30/19 05/01/19 05/01/19 21:39 00:11 07:23 WBC 8.6 RBC 4.83 Hgb 14.8 D Hct 43.5 MCV 90 MCH 30.6 MCHC 34.1 RDW 13.6 Plt Count 240 Seg Neutrophils % Sodium Potassium Chloride Carbon Dioxide Anion Gap BUN Creatinine Est GFR ( Amer) Glucose Lactic Acid 1.0 Calcium Magnesium Total Bilirubin AST Alkaline Phosphatase Total Protein Albumin Lipase TSH Free T4 Urine Color MANUEL Urine Appearance SLIGHTLY-CLOUDY Urine pH 5.0 Ur Specific [place] 1.027 Urine Protein 30 H Urine Glucose (UA) NEGATIVE Urine Ketones NEGATIVE Urine Blood NEGATIVE Urine Nitrite NEGATIVE Ur Leukocyte Esterase NEGATIVE Urine WBC (Auto) 3 05/01/19 07:23 WBC RBC Hgb Hct MCV MCH MCHC RDW Plt Count Seg Neutrophils % Sodium 142.3 Potassium 3.1 L Chloride 105 Carbon Dioxide 26 Anion Gap 11 BUN 33 H Creatinine 1.17 Est GFR ( Amer) > 60 Glucose 138 H Lactic Acid Calcium 8.4 Magnesium Total Bilirubin AST Alkaline Phosphatase Total Protein Albumin Lipase TSH Free T4 Urine Color Urine Appearance Urine pH Ur Specific [place] Urine Protein Urine Glucose (UA) Urine Ketones Urine Blood Urine Nitrite Ur Leukocyte Esterase Urine WBC (Auto) 04/30/19 05/01/19 05/01/19 21:34 00:11 07:23 Troponin I < 0.012 0.014 0.020 Impressions: Abdomen/Pelvis CT 04/30/19 20:34 IMPRESSION: 1. Mild dilatation with increased fluid of majority of small bowel and as well as right and transverse colon. No obvious obstructing lesion. Findings could be related to gastroenteritis or ileus. There is narrowing at the origin of the superior mesenteric artery and questionably mild stenosis of the celiac artery. The possibility of ischemic bowel should be considered. Bowel wall is is relatively thin which does not exclude ischemic changes. There are no obvious peritoneal abnormalities. 2. Sigmoid diverticulosis without acute diverticulitis. 3. Fatty liver. Increased peritoneal fat causing abdominal distention. 4. Bilateral inguinal hernias with herniation of fat not bowel.. Chest X-Ray 04/30/19 21:41 IMPRESSION: No acute cardiopulmonary process copyright 2011 [employer]- All Rights Reserved Abdomen Ultrasound 05/01/19 08:45 IMPRESSION: Limited exam secondary to body habitus and overlying bowel gas. Nondiagnostic for evaluation of the mesenteric vessels. Assessment & Plan - Diagnosis (1) Abdominal pain Qualifiers: Abdominal location: generalized Qualified Code(s): R10.84 - Generalized abdominal pain Is this a current diagnosis for this admission?: Yes Plan: Impression: Clinically improved abdominal pain, of unclear etiology. CT scan carefully reviewed, and mesenteric vessels appear patent with nonocclusive atherosclerotic changes. Recommendations: 1. No indication for surgical 2. No indication for further diagnostic evaluation 3. If diarrhea continues continue checking stool for C. difficile titer 4. Start patient on clear liquids, advance as tolerated 5. We will sign off from surgical standpoint; reconsult if clinically gated - Time Time Spent with patient: Less than 15 minutes
[2019-05-01] MEDS: POTASSIUM CHLORIDE 10 MEQ TABLET.ER PO SCH ×2 (13:49→21:30)
[2019-05-01 14:29] LABS: HEMATOCRIT 43.9 % (37.9-51.0); MEAN CORPUSCULAR HEMOGLOBIN 30.8 pg (27.0-33.4); MEAN CORPUSCULAR HGB CONC 34.1 g/dL (32.0-36.0); MEAN CORPUSCULAR VOLUME 90 fl (80-97); PLATELET COUNT 225 10^3/uL (150-450); RED BLOOD COUNT 4.86 10^6/uL (4.35-5.55); RED CELL DISTRIBUTION WIDTH 13.6 % (11.5-14.0); WHITE BLOOD COUNT 6.6 10^3/uL (4.0-10.5)
--- NOTE | 2019-05-01 15:10 | Progress Note ---
Provider Note Provider Note: 05/01/2019 Patient seen briefly. Surgery has signed off of the case, has instructed patient to advance diet as tolerated. Patient is feeling much better and says that he is ready to go home. As soon as patient is tolerating a regular diet and having bowel movements he will be discharged
--- NOTE | 2019-05-01 16:26 | EKG REPORT ---
SEVERITY:- ABNORMAL ECG - ATRIAL FIBRILLATION, V-RATE [id number] : Confirmed by: Gloria Cottrell MD 01-May-2019 16:25:50
--- NOTE | 2019-05-01 16:26 | EKG REPORT ---
SEVERITY:- ABNORMAL ECG - ATRIAL FIBRILLATION BORDERLINE T ABNORMALITIES, INFERIOR LEADS : Confirmed by: Gloria Cottrell MD 01-May-2019 16:25:38
[2019-05-01 22:02] LABS: HEMATOCRIT 42.4 % (37.9-51.0); HEMOGLOBIN 14.3 g/dL (13.5-17.0); MEAN CORPUSCULAR HEMOGLOBIN 30.4 pg (27.0-33.4); MEAN CORPUSCULAR HGB CONC 33.6 g/dL (32.0-36.0); MEAN CORPUSCULAR VOLUME 91 fl (80-97); PLATELET COUNT 226 10^3/uL (150-450); RED BLOOD COUNT 4.69 10^6/uL (4.35-5.55); RED CELL DISTRIBUTION WIDTH 13.7 % (11.5-14.0); WHITE BLOOD COUNT 6.7 10^3/uL (4.0-10.5)
[2019-05-02] MEDS: LEVOTHYROXINE SODIUM 0.15 MG TABLET PO SCH (05:05)
[2019-05-02 06:39] LABS: HEMATOCRIT 42.1 % (37.9-51.0); HEMOGLOBIN 14.6 g/dL (13.5-17.0); MEAN CORPUSCULAR HGB CONC 34.6 g/dL (32.0-36.0); MEAN CORPUSCULAR VOLUME 90 fl (80-97); PLATELET COUNT 220 10^3/uL (150-450); RED BLOOD COUNT 4.69 10^6/uL (4.35-5.55); RED CELL DISTRIBUTION WIDTH 13.3 % (11.5-14.0)
[2019-05-02 07:01] LABS: ALBUMIN 3.5 g/dL (3.5-5.0); ALKALINE PHOSPHATASE 38 U/L (38-126); ANION GAP 7 (5-19); ASPARTATE AMINO TRANSFERASE 36 U/L (17-59); BILIRUBIN,DIRECT 0.3 mg/dL (0.0-0.4); BILIRUBIN,TOTAL 0.8 mg/dL (0.2-1.3); BLOOD UREA NITROGEN 20 mg/dL (7-20); CALCIUM 8.7 mg/dL (8.4-10.2); CARBON DIOXIDE 30 mmol/L (22-30); CHLORIDE 105 mmol/L (98-107); CHOLESTEROL 97.31 mg/dL (0-200); GLUCOSE 114 mg/dL (75-110); POTASSIUM 3.4 mmol/L (3.6-5.0); TOTAL PROTEIN 6.1 g/dL (6.3-8.2); TRIGLYCERIDES 140 mg/dL (<150)
[2019-05-02 07:12] LABS: DIRECT LDL 58 mg/dL (<100)
[2019-05-02 07:17] LABS: FREE T3 2.51 pg/mL (2.77-5.27)
[2019-05-02] MEDS: INSULIN REG, HUMAN 100 UNIT/ML 3 ML VIAL (PYX) SUBCUT SCH ×2 (07:20→11:10)
[2019-05-02 07:30] LABS: THYROID STIMULATING HORMONE 4.7 uIU/mL (0.47-4.68)
[2019-05-02] MEDS: METOCLOPRAMIDE HCL INJ/PF 10 MG/2 ML SDV IV SCH ×2 (07:44→11:51)
[2019-05-02] MEDS: POTASSIUM CHLORIDE 10 MEQ TABLET.ER PO SCH (09:38)
[2019-05-02] MEDS: PANTOPRAZOLE SODIUM 40 MG VIAL IV SCH (09:38)
[2019-05-02 12:32] VITALS: BP 158/88
--- NOTE | 2019-05-05 19:14 | PDOC DISCHARGE SUMMARY ---
Impression - Admit/DC Date/PCP Admission Date/Primary Care Provider: 05/01/19 00:50 YOLIE TEMO VILLAGOMEZMARCIAL, [facility] Discharge Date: 05/02/19 - Assessment Summary: Patient will be admitted to the medical floor in a telemetry bed for routine supportive and symptomatic cares. He will be maintained on IV fluids and kept n.p.o. overnight. He will be reevaluated on a regular basis by Dr. Lanza from the surgical service. His atrial fibrillation will be monitored and rapid ventricular responses will be treated as needed. Due to the patient's guaiac positive stool on exam in ER he will not be placed on anticoagulation at this time and given his age and potential for greater risk than benefit of anticoagulation it may not be appropriate at any point in time. He will be given Zofran as needed for nausea and retching. Daily CBCs, metabolic profiles and magnesium levels will be followed as appropriate with other laboratory testing as deemed necessary. Before meals and at bedtime Accu-Cheks will be performed with sliding scale insulin for hyperglycemia and a hypoglycemic protocol in place. Elevations of the patient's blood pressure and/or heart rate will be treated with IV hydralazine and/or IV diltiazem. Patient will use morphine sulfate 2 to 4 mg IV every 2 hours on an as-needed basis for pain control. 05/02/2019 Patient is tolerating a regular diet, normal bowel movements. Patient is asking to be discharged home She is being sent home on his potassium 20 mEq every 12 hours Synthroid 0.15 mg daily and Zofran as needed To follow-up with his primary care provider in the next 7 to 10 days Has no abdominal pain Patient has been cleared by general surgery to be discharged - Additional Information Resuscitation Status: Full Code Discharge Diet: Diabetic Discharge Activity: Balance Activity w/Rest Referrals: JERE FIERRO DO [NO LOCAL MD] - 05/12/19 9:30 am Prescriptions: Potassium Chloride [Klor-Con 10 Meq Tablet ER] 20 meq PO Q12 30 Days #60 tablet.er Levothyroxine Sodium [Synthroid 0.15 mg Tablet] 0.15 mg PO Q6AM 30 Days #30 tablet Ondansetron [Zofran Odt 4 mg Tablet] 1 tab PO Q6HP PRN 3 Days #10 tab.rapdis PRN Reason: Home Medications: Amlodipine Besylate [Norvasc 10 mg Tablet] 10 mg PO DAILY 05/01/19 Atorvastatin Calcium [Lipitor 40 mg Tablet] 40 mg PO QHS 05/01/19 Insulin Aspart [Novolog Flexpen] 10 units SQ TID 05/01/19 Insulin Glargine,Hum.rec.anlog [Basaglar Kwikpen U-100] 20 unit SQ DAILY 05/01/19 Levothyroxine Sodium [Synthroid] 125 mcg PO DAILY 05/01/19 Pantoprazole Sodium 40 mg PO DAILY 05/01/19 Polyethylene Glycol 3350 [Clearlax] 17 gm PO DAILY 05/01/19 Sitagliptin Phosphate [Januvia] 100 mg PO DAILY 05/01/19 Levothyroxine Sodium [Synthroid 0.15 mg Tablet] 0.15 mg PO Q6AM 30 Days #30 tablet 05/02/19 Ondansetron [Zofran Odt 4 mg Tablet] 1 tab PO Q6HP PRN 3 Days #10 tab.rapdis 05/02/19 Potassium Chloride [Klor-Con 10 Meq Tablet ER] 20 meq PO Q12 30 Days #60 tablet.er 05/02/19 History of Present Illiness History of Present Illness: FLORIAN MCKEON is a 74 year old male Physical Exam Vital Signs: Temp Pulse Resp BP Pulse Ox 98.1 F 68 17 121/59 L 98 05/02/19 11:31 05/02/19 11:31 05/02/19 11:31 05/02/19 11:31 05/02/19 11:31 Results Laboratory Results: WBC 6.0 10^3/uL (4.0-10.5) 05/02/19 06:21 RBC 4.69 10^6/uL (4.35-5.55) 05/02/19 06:21 Hgb 14.6 g/dL (13.5-17.0) 05/02/19 06:21 Hct 42.1 % (37.9-51.0) 05/02/19 06:21 MCV 90 fl (80-97) 05/02/19 06:21 MCH 31.0 pg (27.0-33.4) 05/02/19 06:21 MCHC 34.6 g/dL (32.0-36.0) 05/02/19 06:21 RDW 13.3 % (11.5-14.0) 05/02/19 06:21 Plt Count 220 10^3/uL (150-450) 05/02/19 06:21 Lymph % (Auto) 7.3 % (13-45) L 04/30/19 21:34 [place] % (Auto) 7.5 % (3-13) 04/30/19 21:34 Eos % (Auto) 0.2 % (0-6) 04/30/19 21:34 Baso % (Auto) 0.5 % (0-2) 04/30/19 21:34 Absolute Neuts (auto) 10.7 10^3/uL (1.7-8.2) H 04/30/19 21:34 Absolute Lymphs (auto) 0.9 10^3/uL (0.5-4.7) 04/30/19 21:34 Absolute Monos (auto) 0.9 10^3/uL (0.1-1.4) 04/30/19 21:34 Absolute Eos (auto) 0.0 10^3/uL (0.0-0.6) 04/30/19 21:34 Absolute Basos (auto) 0.1 10^3/uL (0.0-0.2) 04/30/19 21:34 Seg Neutrophils % 84.5 % (42-78) H 04/30/19 21:34 PT 13.8 SEC (11.4-15.4) 05/01/19 09:10 INR 1.06 05/01/19 09:10 APTT 27.5 SEC (23.5-35.8) 05/01/19 09:10 Sodium 142.2 mmol/L (137-145) 05/02/19 06:21 Potassium 3.4 mmol/L (3.6-5.0) L 05/02/19 06:21 Chloride 105 mmol/L (98-107) 05/02/19 06:21 Carbon Dioxide 30 mmol/L (22-30) 05/02/19 06:21 Anion Gap 7 (5-19) 05/02/19 06:21 BUN 20 mg/dL (7-20) 05/02/19 06:21 Creatinine 1.00 mg/dL (0.52-1.25) 05/02/19 06:21 Est GFR ( Amer) > 60 (>60) 05/02/19 06:21 Est GFR (MDRD) Non-Af > 60 (>60) 05/02/19 06:21 Glucose 114 mg/dL (75-110) H 05/02/19 06:21 POC Glucose 128 mg/dL (70-110) H 05/02/19 11:30 Hemoglobin A1c % 6.9 % (4.7-6.0) H 05/02/19 06:21 Lactic Acid 1.0 mmol/L (0.7-2.1) 05/01/19 00:11 Calcium 8.7 mg/dL (8.4-10.2) 05/02/19 06:21 Magnesium 2.0 mg/dL (1.6-2.3) 05/02/19 06:21 Total Bilirubin 0.8 mg/dL (0.2-1.3) 05/02/19 06:21 Direct Bilirubin 0.3 mg/dL (0.0-0.4) 05/02/19 06:21 Neonat Total Bilirubin Not Reportable 05/02/19 06:21 Neonat Direct Bilirubin Not Reportable 05/02/19 06:21 Neonat Indirect Bili Not Reportable 05/02/19 06:21 AST 36 U/L (17-59) 05/02/19 06:21 ALT 37 U/L (<50) 05/02/19 06:21 Alkaline Phosphatase 38 U/L (38-126) 05/02/19 06:21 Troponin I < 0.012 ng/mL 05/01/19 19:12 Total Protein 6.1 g/dL (6.3-8.2) L 05/02/19 06:21 Albumin 3.5 g/dL (3.5-5.0) 05/02/19 06:21 Triglycerides 140 mg/dL (<150) 05/02/19 06:21 Cholesterol 97.31 mg/dL (0-200) 05/02/19 06:21 LDL Cholesterol Direct 58 mg/dL (<100) 05/02/19 06:21 VLDL Cholesterol 28.0 mg/dL (10-31) 05/02/19 06:21 HDL Cholesterol 23 mg/dL (>40) L 05/02/19 06:21 Lipase 44.3 U/L (23-300) 04/30/19 21:34 TSH 4.70 uIU/mL (0.47-4.68) H 05/02/19 06:21 Free T4 1.04 ng/dL (0.78-2.19) 04/30/19 21:34 Free T3 pg/mL 2.51 pg/mL (2.77-5.27) L 05/02/19 06:21 Urine Color MANUEL 04/30/19 21:39 Urine Appearance SLIGHTLY-CLOUDY 04/30/19 21:39 Urine pH 5.0 (5.0-9.0) 04/30/19 21:39 Ur Specific [place] 1.027 04/30/19 21:39 Urine Protein 30 mg/dL (NEGATIVE) H 04/30/19 21:39 Urine Glucose (UA) NEGATIVE mg/dL (NEGATIVE) 04/30/19 21:39 Urine Ketones NEGATIVE mg/dL (NEGATIVE) 04/30/19 21:39 Urine Blood NEGATIVE (NEGATIVE) 04/30/19 21:39 Urine Nitrite NEGATIVE (NEGATIVE) 04/30/19 21:39 Urine Bilirubin NEGATIVE (NEGATIVE) 04/30/19 21:39 Urine Urobilinogen NEGATIVE mg/dL (<2.0) 04/30/19 21:39 Ur Leukocyte Esterase NEGATIVE (NEGATIVE) 04/30/19 21:39 Urine WBC (Auto) 3 /HPF 04/30/19 21:39 U Hyaline Cast (Auto) 5 /LPF 04/30/19 21:39 Squamous Epi Cells Auto 2 /HPF 04/30/19 21:39 Urine Mucus (Auto) MANY /LPF 04/30/19 21:39 Urine Ascorbic Acid NEGATIVE (NEGATIVE) 04/30/19 21:39 04/30/19 05/01/19 05/01/19 21:34 00:11 07:23 Troponin I < 0.012 0.014 0.020 05/01/19 05/01/19 14:11 19:12 Troponin I < 0.012 < 0.012 Impressions: Abdomen/Pelvis CT 04/30/19 20:34 IMPRESSION: 1. Mild dilatation with increased fluid of majority of small bowel and as well as right and transverse colon. No obvious obstructing lesion. Findings could be related to gastroenteritis or ileus. There is narrowing at the origin of the superior mesenteric artery and questionably mild stenosis of the celiac artery. The possibility of ischemic bowel should be considered. Bowel wall is is relatively thin which does not exclude ischemic changes. There are no obvious peritoneal abnormalities. 2. Sigmoid diverticulosis without acute diverticulitis. 3. Fatty liver. Increased peritoneal fat causing abdominal distention. 4. Bilateral inguinal hernias with herniation of fat not bowel.. Chest X-Ray 04/30/19 21:41 IMPRESSION: No acute cardiopulmonary process copyright 2011 [employer]- All Rights Reserved Abdomen Ultrasound 05/01/19 08:45 IMPRESSION: Limited exam secondary to body habitus and overlying bowel gas. Nondiagnostic for evaluation of the mesenteric vessels. Stroke Is this a Stroke Patient?: No Acute Heart Failure - Is this a Heart Failure Patient?: No
== END 2019-05-02 12:47 | disposition home health service (06) | DRG 310 ==
LOC: ER 19:11 → EH 05-01 00:50 → 3S 05-01 04:44
PROVIDERS: ADMIT Emergency Medicine; ATTEND Emergency Medicine
DX: I48.91 Unspecified atrial fibrillation (principal); E11.22 Type 2 diabetes mellitus with diabetic chronic kidney disease; R10.84 Generalized abdominal pain; E78.5 Hyperlipidemia, unspecified; E66.9 Obesity, unspecified; I12.9 Hypertensive chronic kidney disease with stage 1 through stage 4 chronic kidney disease, or unspecified chronic kidney disease; N18.9 Chronic kidney disease, unspecified; K21.9 Gastro-esophageal reflux disease without esophagitis; M19.90 Unspecified osteoarthritis, unspecified site; H57.10 Ocular pain, unspecified eye; H92.09 Otalgia, unspecified ear; K40.20 Bilateral inguinal hernia, without obstruction or gangrene, not specified as recurrent; R11.2 Nausea with vomiting, unspecified; R19.7 Diarrhea, unspecified; R19.5 Other fecal abnormalities; Z83.3 Family history of diabetes mellitus; Z82.49 Family history of ischemic heart disease and other diseases of the circulatory system; Z88.0 Allergy status to penicillin; Z88.8 Allergy status to other drugs, medicaments and biological substances; Z68.31 Body mass index [BMI] 31.0-31.9, adult
CPT/HCPCS: 36415; 71045; 74177; 76705; 80048; 80053; 80061; 81001; 82962; 83036; 83605; 83690; 83735; 84439; 84443; 84481; 84484; 85025; 85027; 85610; 85730; 93005; 93010; 93976; 96361; 96374; 96375; 99285; C9113; J2270; J2765; J3490; J7030; S0119